=== PATIENT | female | born 1955 | race Caucasian/White ===

== ENCOUNTER 2018-07-10 08:46 | Day surgery (SDC) | payer OTHER ==
[2018-06-27 10:32] VITALS: BMI 25.9
[2018-07-10] MEDS ORDERED: LIDOCAINE HCL/PF 2% SDV 5ML VIAL ONE (09:09)
[2018-07-10] MEDS ORDERED: PROPOFOL 20 ML ONE ×2 (09:09)
[2018-07-10 09:57] VITALS: TEMP 97.6
[2018-07-10 11:37] VITALS: BP 106/68; PULSE 67
--- NOTE | 2018-07-12 16:02 | PATH ---
Surgical Pathology Report Patient Name: JAN ZEPEDA [facility]. Rec. #: [id number] /Age/Gender: 1955 (Age: 62) / F Account: [id number] Location: [facility] Taken: 07/11/2018 Received: 07/11/2018 Reported: 07/12/2018 Physicians: Ra Sarah M.D. Specimen(s) Received RECTOSIGMOID POLYP Clinical History Rule out colon cancer Postoperative diagnosis: Polyp Final Diagnosis RECTOSIGMOID POLYP, BIOPSY: POLYPOID COLONIC MUCOSA WITH MILD NONSPECIFIC CHRONIC INFLAMMATION IN THE LAMINA PROPRIA. NEGATIVE FOR ACTIVE COLITIS OR GRANULOMATOUS INFLAMMATION. Electronically Signed Deep Armas M.D. Gross Description Received in formalin, labeled "rectosigmoid" is a rivera, irregular portion of soft tissue measuring 0.2 cm. in greatest dimension. The specimen is submitted in toto in one cassette. MLSZ/07/11/2018 sanml/07/11/2018
== END 2018-07-10 10:25 | disposition home or self-care (01) ==
LOC: FASU-ENDO 08:46
PROVIDERS: ATTEND Internal Medicine Gastroenterology
PROC: 0DBN8ZX Excision of Sigmoid Colon, Via Natural or Artificial Opening Endoscopic, Diagnostic (ICD-10-PCS; principal; 2018-07-10 09:19)
DX: Z12.11 Encounter for screening for malignant neoplasm of colon (principal); D12.7 Benign neoplasm of rectosigmoid junction; K64.4 Residual hemorrhoidal skin tags
CPT/HCPCS: 88305-TC

== ENCOUNTER 2023-07-25 11:08 | Day surgery (SDC) | payer OTHER, MEDICARE ==
[2023-07-21 11:16] VITALS: BMI 26.1
[2023-07-25 11:30] VITALS: TEMP 98
[2023-07-25] MEDS ORDERED: PROPOFOL 20 ML ONE (12:43)
[2023-07-25 13:26] VITALS: RESP 16
[2023-07-25 13:27] VITALS: BP 131/73; PULSE 72
== END 2023-07-25 13:45 | disposition home or self-care (01) ==
LOC: FASU-ENDO 11:08
PROVIDERS: ATTEND Internal Medicine Gastroenterology
PROC: 0DB98ZX Excision of Duodenum, Via Natural or Artificial Opening Endoscopic, Diagnostic (ICD-10-PCS; 2023-07-25)
PROC: 0DB68ZX Excision of Stomach, Via Natural or Artificial Opening Endoscopic, Diagnostic (ICD-10-PCS; 2023-07-25)
PROC: 0D748DZ Dilation of Esophagogastric Junction with Intraluminal Device, Via Natural or Artificial Opening Endoscopic (ICD-10-PCS; 2023-07-25)
PROC: 0DBN8ZX Excision of Sigmoid Colon, Via Natural or Artificial Opening Endoscopic, Diagnostic (ICD-10-PCS; principal; 2023-07-25 12:29)
DX: Z12.11 Encounter for screening for malignant neoplasm of colon (principal); K63.5 Polyp of colon; K29.50 Unspecified chronic gastritis without bleeding; D17.5 Benign lipomatous neoplasm of intra-abdominal organs; Z80.0 Family history of malignant neoplasm of digestive organs; Z83.719 Family history of colon polyps, unspecified; R13.10 Dysphagia, unspecified
CPT/HCPCS: 88305-TC; 88342-TC